=== PATIENT | female | born 1990 | race Caucasian/White ===

== ENCOUNTER 2021-05-26 11:01 | Emergency (ER) | payer BC, SELFPAY ==
[2021-05-26 11:06] VITALS: BP 145/90; PULSE 99; RESP 16; TEMP 36.7; O2SAT 99
--- NOTE | 2021-05-26 11:11 | ED.URI ---
HPI - URI/Sore Throat General Chief Complaint: Upper Respiratory Infection Stated Complaint: runny nose sore throat and cough History of Present Illness HPI Narrative: This is a 30-year-old female presents to the urgent care complaining of thinking she has Covid patients tells me her had Covid 9 days ago. She has some cough and congestion she is in her first trimester of . Patient wanted to ensure that she is not positive. Related Data Home Medications Medication Instructions Recorded Confirmed nifedipine 30 mg PO DAILY 05/26/21 05/26/21 Allergies Allergy/AdvReac Type Severity Reaction Status Date / Time morphine Allergy Unknown ITCHY Verified 05/26/21 11:36 Review of Systems Review of Systems: Cough congestion and not feeling well All systems reviewed & are unremarkable except as noted in HPI and below PMFSH Comments At time as signature, I have reviewed and agree with nursing past medical, social, surgical and family history. Please see nursing chart for further information. There is no relevant family history pertinent to the presenting complaint. Exam Narrative: GENERAL:Well-appearing, well-nourished, and in no acute distress. HEAD:Normocephalic. EYES: PERRLA ENT: Nares clear, moderate rhinorrhea Mucous membranes moist. CHEST: No respiratory distress. HEART: Regular rate and rhythm. Normal peripheral pulses. ABDOMEN: Soft, nontender, nondistended, normal active bowel sounds. EXTREMITIES: Normal range of motion. No edema. SKIN: Warm, dry, no rash. NEURO: No focal deficits. Alert and oriented x3. Course Course Emergency Course: Negative influenza, negative strep, positive Vital Signs Vital signs: Vital Signs Temperature 98.1 F 05/26/21 11:06 Pulse Rate 99 05/26/21 11:06 Respiratory Rate 16 05/26/21 11:06 Blood Pressure 145/90 H 05/26/21 11:06 Pulse Oximetry 99 05/26/21 11:06 Temperature 98.1 F 05/26/21 11:06 Pulse Rate 99 05/26/21 11:06 Respiratory Rate 16 05/26/21 11:06 Blood Pressure 145/90 H 05/26/21 11:06 Pulse Oximetry 99 05/26/21 11:06 MDM - URI/Sore Throat Differential Diagnosis Differential diagnosis: Likely upper respiratory infection, otitis media, bronchitis, influenza and other (Covid) Discharge Plan Discharge Clinical Impression: COVID-19 Patient Disposition: Home, Self-Care Condition: Stable Instructions: Antibiotic Form, COVID-19 (Coronavirus Disease 2019) (ED), Face Coverings (Masks) and COVID-19 (ED) Additional Instructions: Your strep test today was negative. A throat culture will be sent to the laboratory for further testing. IF the test is positive, you will receive a phone call within 48 hours and an appropriate antibiotic will be initiated at that time. You will not receive a phone call if the test is negative. Until the throat culture proves otherwise, you should proceed with treating this is as a viral pharyngitis. Salt water gargles may alleviate some of your throat discomfort. Take Tylenol and/or ibuprofen per the package instructions for pain/fever. Go to the ER if your symptoms become worse of if ANY new symptoms develop ]FOR THE PATIENT AND HOUSEHOLD MEMBERS: Self-quarantine for at least 7 days from symptom onset plus 3 days after being symptom free. When self-quarantined, stay home and practice infection prevention practices including: ? Stay home when you are sick (fever, cough, upper respiratory infection symptoms) ? Wash your hands often with soap and water for 20 seconds or use an alcohol-based hand solar development engineer, especially before eating, after coughing or sneezing and after using the bathroom. ? Cover your cough or sneeze with a tissue and put the tissue in the trash. ? Avoid close contact with people who are sick. ? Avoid touching your nose, eyes and mouth. ? Clean and disinfect frequently touched objects and surfaces using a regular household cleaning spray or wipe. ? Stay informed about
--- NOTE | 2021-05-26 13:45 | ED.URI ---
HPI - URI/Sore Throat General Chief Complaint: Upper Respiratory Infection Stated Complaint: runny nose sore throat and cough History of Present Illness HPI Narrative: This is a 30-year-old female comes in complaining of having several days of shortness of breath wheezing inhaler seems to not be working cough congestion states she is taken 3 Covid test in the past 3 days and they have all been negative. Patient primary care provider cannot get her in she feels like if she had nebulizer treatment she be feeling better but she is out of the medicine Related Data Home Medications Medication Instructions Recorded Confirmed nifedipine 30 mg PO DAILY 05/26/21 05/26/21 Allergies Allergy/AdvReac Type Severity Reaction Status Date / Time morphine Allergy Unknown ITCHY Verified 05/26/21 11:36 Review of Systems Review of Systems: Cough, wheezing, congestion All systems reviewed & are unremarkable except as noted in HPI and below PMFSH Comments At time as signature, I have reviewed and agree with nursing past medical, social, surgical and family history. Please see nursing chart for further information. There is no relevant family history pertinent to the presenting complaint. Exam Narrative: GENERAL:Well-appearing, well-nourished, and in no acute distress. HEAD:Normocephalic. EYES: PERRLA ENT: Nares clear, no rhinorrhea . Mucous membranes moist. CHEST: Clear to diminished lower lobes auscultation. No respiratory distress. HEART: Regular rate and rhythm.. Normal peripheral pulses. ABDOMEN: Soft, normal active bowel sounds. EXTREMITIES: Normal range of motion. No edema. SKIN: Warm, dry, no rash. NEURO: No focal deficits. Alert and oriented x3. Course Vital Signs Vital signs: Vital Signs Temperature 98.1 F 05/26/21 11:06 Pulse Rate 99 05/26/21 11:06 Respiratory Rate 16 05/26/21 11:06 Blood Pressure 145/90 H 05/26/21 11:06 Pulse Oximetry 99 05/26/21 11:06 Temperature 98.1 F 05/26/21 11:06 Pulse Rate 99 05/26/21 11:06 Respiratory Rate 16 05/26/21 11:06 Blood Pressure 145/90 H 05/26/21 11:06 Pulse Oximetry 99 05/26/21 11:06 MDM - URI/Sore Throat Differential Diagnosis Differential diagnosis: Likely upper respiratory infection, otitis media, sinusitis, viral infection, bronchitis, influenza and pharyngitis Lab Data Labs: Lab Results 05/26/21 Range/Units 11:29 POC SARS CoV-2 Ag Positive (Negative) Influenza A Screen Negative Reference Range: Negative Influenza B Screen Negative Reference Range: Negative Strep Screen Presumptive Negative *(Reference Range: Negative)* Discharge Plan Discharge Clinical Impression: COVID-19 Patient Disposition: Home, Self-Care Condition: Stable Instructions: Antibiotic Form, COVID-19 (Coronavirus Disease 2019) (ED), Face Coverings (Masks) and COVID-19 (ED) Additional Instructions: Your strep test today was negative. A throat culture will be sent to the laboratory for further testing. IF the test is positive, you will receive a phone call within 48 hours and an appropriate antibiotic will be initiated at that time. You will not receive a phone call if the test is negative. Until the throat culture proves otherwise, you should proceed with treating this is as a viral pharyngitis. Salt water gargles may alleviate some of your throat discomfort. Take Tylenol and/or ibuprofen per the package instructions for pain/fever. Go to the ER if your symptoms become worse of if ANY new symptoms develop ]FOR THE PATIENT AND HOUSEHOLD MEMBERS: Self-quarantine for at least 7 days from symptom onset plus 3 days after being symptom free. When self-quarantined, stay home and practice infection prevention practices including: ? Stay home when you are sick (fever,
== END 2021-05-26 11:50 | disposition home or self-care (01) ==
PROVIDERS: Emergency Provider Nurse Practitioner Family
DX: U07.1 COVID-19 (principal); I10 Essential (primary) hypertension
CPT/HCPCS: 87081; 87426; 87804; 87880; 99213; C9803; G0463

== ENCOUNTER 2023-04-18 12:20 | Emergency (ER) | payer OTHER, SELFPAY ==
[2023-04-18 12:26] VITALS: BP 149/84; PULSE 91; RESP 16; TEMP 36.8; O2SAT 97
--- NOTE | 2023-04-18 12:43 | ED.URI ---
HPI - URI/Sore Throat General Chief Complaint: Upper Respiratory Infection Stated Complaint: Cough that won't go away Source: patient and RN notes reviewed Mode of arrival: ambulatory Limitations: no limitations History of Present Illness HPI Narrative: Patient is a 32-year-old female who presents to the [facility] with complaints of cough for the past 2 and half weeks. She states that she had cold symptoms starting 2 and half weeks ago, and the cough has been persistent ever since. She reports a frequent nonproductive cough. Patient also reports nasal drainage. Denies recent fevers. she denies chest pain or shortness of breath. Patient states that she is currently 13 weeks with her 4th . She denies any related symptoms. Patient states that she is here hoping for something to help with the persistent cough. Related Data Home Medications Medication Instructions Recorded Confirmed escitalopram oxalate 10 mg tablet mg 04/18/23 Allergies Allergy/AdvReac Type Severity Reaction Status Date / Time morphine Allergy Unknown ITCHY Verified 11/21/22 13:02 Review of Systems Review of Systems: CONSTITUTIONAL: Denies fever, chills, or sweats. EYES: Denies visual changes, redness, or discharge. ENT: Denies otalgia and sore throat CARDIOVASCULAR: Denies chest pain, palpitations, or edema. RESPIRATORY: Denies dyspnea. Reports cough. GASTROINTESTINAL: Denies abdominal pain, nausea, vomiting, or diarrhea. GENITOURINARY: Denies dysuria or hematuria. SKIN: Denies rash or itching. MUSCULOSKELETAL: Denies back pain, joint pain, or myalgia. NEUROLOGIC: Denies headache, numbness, or weakness. Pertinent positives per HPI. [facility] Past Medical History Medical History Hyperglycemia Family History Family History Mother Ovarian cancer Father Hypertension Heart disease Social History Social History Smoking status: Never smoker Alcohol intake: never Substance use: never Lack of Transportation: No Lack of Food: Never True Current Housing: I Have Housing Concerned About Future Housing: No Difficulty Paying Gas/Electric Bills: No Difficulty Paying for Meds: No Currently Unemployed: No Education: Master's Degree or Higher Difficulty w/ Childcare or Family Care: No Living arrangements: with family Comments At the time of my signature, I reviewed and agree with the nursing past medical, surgical, social, and family history. There is no relevant family history pertinent to the patient complaint. Exam Narrative: GENERAL: This is a well-nourished, well-developed patient, in no apparent distress. HEAD: normocephalic, atraumatic. EYES: Sclera clear/white. Vision is grossly intact. EARS: External ears normal, auditory canals clear and without drainage, TMs normal without perforation. Hearing grossly intact. NOSE: External nose normal with no obvious nasal discharge, nares without redness, no rhinorrhea. THROAT: Mucous membranes moist, posterior pharynx clear. NECK: Neck supple, non-tender without lymphadenopathy, masses or thyromegaly. CARDIOVASCULAR: Regular rate and rhythm without murmurs, gallops, or rubs. RESPIRATORY: Clear to auscultation. Breath sounds equal bilaterally. No wheezes, rales, or rhonchi. GASTROINTESTINAL: Abdomen soft, non-tender, nondistended. Bowel sounds are active. No hepato-splenomegaly, or palpable masses. No guarding. SKIN: warm, intact with no suspicious lesions or rash, good texture and turgor. NEURO: awake, alert, and oriented to person, place and time. There were no obvious focal neurologic abnormalities. Course Course Level of Care: Express Care Visit Vital Signs Vital signs: Vital Signs Temperature 98.2 F 04/18/23 12:26 Pulse Rate 91 04/18/23 12:26 Respi
== END 2023-04-18 12:58 | disposition home or self-care (01) ==
PROVIDERS: Emergency Provider Nurse Practitioner; PCP Clinical Nurse Specialist
DX: O99.511 Diseases of the respiratory system complicating pregnancy, first trimester (principal); Z3A.13 13 weeks gestation of pregnancy; J20.8 Acute bronchitis due to other specified organisms
CPT/HCPCS: 99211; G0463